=== PATIENT | female | born 1955 ===

== ENCOUNTER 2022-09-02 14:08 | Inpatient (IN) | payer MEDICARE, MEDICAID, SELFPAY ==
[2022-09-02] VITALS (13 sets, daily range): BP systolic 139–165; BP diastolic 87–99; PULSE 79–92; RESP 17–23; TEMP 36.5–37.3; O2SAT 92–99; BMI 46.8
--- NOTE | ~2022-09-02 | CT_ITS ---
EXAMINATION: CT brain wo con DATE: 09/02/2022 15:25 INDICATION: Weakness. TECHNIQUE: Computed tomography (CT) of the head was performed without intravenous contrast. The mA wa s adjusted according to patient size. Iterative reconstruction technique was employed. The dose-lengt h product was 605.33 mGy-cm. COMPARISON: Head CT 11/21/2016 FINDINGS: There is an old infarct involving the right basal ganglia, right insula, and right frontopa rietal deep white matter. There is an old lacunar infarct in left thalamus. There is no intracranial hemorrhage, acute infarction, or abnormal intracranial mass lesion. There is ex vacuo dilatation of b lavon of right lateral ventricle. The orbits are normal. There is mild mucosal thickening in the parana arian sinuses. The mastoid air cells are normal. IMPRESSION: 1. Old infarct involving the right basal ganglia, right insula, and right frontoparietal deep white m atter. Old infarct in left thalamus. Reviewed, dictated and finalized at location A. DATA IMPRESSION: 1. Old infarct involving the right basal ganglia, right insula, and right front oparietal deep white matter. Old infarct in left thalamus.
--- NOTE | ~2022-09-02 | XR_ITS ---
EXAMINATION: XR chest 1V portable DATE: 09/02/2022 15:21 INDICATION: Weakness TECHNIQUE: frontal view of the chest was obtained. COMPARISON: Chest radiograph dated 11/21/2016 FINDINGS: The lungs are clear with no focal airspace opacities, pulmonary edema, pleural effusion or pneumothor ax. Cardiomegaly. Median sternotomy wires suggesting prior coronary artery bypass grafting. Dual lead pacemaker/AICD seen with leads projecting over the expected locations of the right atrium and right ventricle. Calcified mediastinal lymph node consistent with old granulomatous disease. Tortuous thora cic aorta. IMPRESSION: 1. Cardiomegaly. Reviewed, dictated and finalized at location A. CH AND LANGUAGE SPECIALIST IMPRESSION: 1. Cardiomegaly.
--- NOTE | 2022-09-02 14:25 | ED.WEAKNESS ---
HPI - Weakness General Chief complaint: Weakness Stated complaint: increasing weakness Source: family and EMS Mode of arrival: EMS Limitations: altered mental status History of Present Illness HPI Narrative: Patient is a 67-year-old female with a history of hypertension, hyperlipidemia, CVA with left-sided deficits, presenting to the emergency department for evaluation of weakness. Patient is currently alert and oriented to person, place, not to time. Apparently, per family she has short-term memory loss. Her son at bedside provides much of the history. He states that this morning around 1 in the morning she was having difficulty ambulating from her chair to bed. Typically, patient is able to ambulate independently and usually does not require much assistance with her ADLs. She lives at home with her son and . Because she has been unable to stand up on her own or walk independently, EMS was called and the patient was transported here for evaluation. Apparently, she has been eating and drinking at baseline. Her mental status seems to be at baseline per son. He denies fever, nausea, vomiting. Patient currently denies any headache, chest pain or abdominal pain. History is limited as the patient is only alert and oriented to person, cannot recall the name of the hospital but cannot state the date. Related Data Home Medications Medication Instructions Recorded Confirmed atorvastatin 40 mg tablet mg 09/02/22 09/02/22 carvedilol 25 mg tablet mg 09/02/22 ergocalciferol (vitamin D2) 1,250 09/02/22 mcg (50,000 unit) capsule icosapent ethyl 1 gram capsule g PO 09/02/22 (Vascepa) potassium chloride 10 mEq meq PO 09/02/22 tablet,extended release(part/cryst) Allergies Allergy/AdvReac Type Severity Reaction Status Date / Time No Known Allergies Allergy Unverified 11/21/16 09:49 Review of Systems Review of Systems: CONSTITUTIONAL: Denies fever CARDIOVASCULAR: Denies chest pain RESPIRATORY: Denies cough or dyspnea. GASTROINTESTINAL: Denies abdominal pain SKIN: Denies rash MUSCULOSKELETAL: Denies back pain NEUROLOGIC: Denies headache ROS unobtainable: Yes unobtainable due to mental status [facility] Past Medical History Medical History (Updated 09/02/22 @ 18:58 by Melinda Reyes MD) Asthma CVA (cerebral vascular accident) HLD (hyperlipidemia) HTN (hypertension) Social History Social History (Updated 09/02/22 @ 15:09 by Melinda Reyes MD) Smoking status: Never smoker Alcohol intake: never Substance use: never Living arrangements: with family Gender identity (if verbalized by the patient): Female Exam Narrative: GENERAL: Awake, alert, morbidly obese HEAD: Normocephalic, atraumatic. EYES: PERRLA and EOMI. ENT: Nares clear, no rhinorrhea or epistaxis. Mucous membranes moist. NECK: Supple. CHEST: No respiratory distress, shallow respirations, however breathing even and non labored HEART: Regular rate, sinus rhythm ABDOMEN:Non distended, non tender EXTREMITIES: Normal range of motion. No edema. SKIN: Warm, dry, no rash. NEURO:No focal deficits. Alert and oriented x1-2. Pt can recall the name of the hospital. Pt with LUE and LLE paralysis, chronic. Course Vital Signs Vital signs: Vital Signs Temperature 36.5 C 09/02/22 14:08 Pulse Rate 92 09/02/22 14:08 Respiratory Rate 20 09/02/22 14:08 Blood Pressure 145/97 H 09/02/22 14:08 Pulse Oximetry 97 09/02/22 14:08 Oxygen Delivery Room Air 09/02/22 14:08 Temperature 36.5 C 09/02/22 14:24 Pulse Rate 89 09/02/22 18:30 Respiratory Rate 21 H 09/02/22 18:30 Blood Pressure 165/97 H 09/02/22 18:30 Pulse Oximetry 93 09/02/22 18:30 Oxygen Delivery Room Air 09/02/22 14:24 MDM - Weakness MDM Narrative Medical decision making narrative: Patient presenting for evaluation weakness per family. They help to provide much of the history given patient is not a very reliable historian. At the time of a
--- NOTE | 2022-09-02 15:10 | ECG_ITS ---
Measurements Intervals [place] Rate: 91 P: 13 DC: 169 QRS: -12 QRSD: 163 T: 164 QT: 421 QTc: 518 Interpretive Statements SINUS RHYTHM LEFT BUNDLE BRANCH BLOCK [120+ ms QRS DURATION, 80+ ms Q/S IN V1/V2, 85+ ms R IN I/aVL/V5/V6] ABNORMAL ECG NO PREVIOUS ECG AVAILABLE FOR COMPARISON Electronically Signed On 09-03-2022 14:34:15 MANAGER INSTALLATION by Zurdo Guerin M.D.
[2022-09-02 15:44] LABS: Basophils Percent Auto 0.4 % (0.2-1.2); Eosinophils Percent Auto 0.2 % (0-4.4); Hematocrit 41.4 % (37.0-47.0); Hemoglobin 13.2 g/dL (12.0-15.0); Immature Granulocyte Absolute 0.01 K/mm3 (0.00-0.031); Immature Granulocyte Percent A 0.2 % (0-0.5); Lymphocytes Absolute Auto 0.42 K/mm3 (0.9-3.2); Mean Corpuscular HGB Conc 31.9 g/dl (32-36); Mean Corpuscular Hemoglobin 28.3 pg (26-34); Mean Corpuscular Volume 88.8 fl (80-100); Mean Platelet Volume 9.6 fl (7.4-10.4); Monocytes Absolute Auto 0.8 K/mm3 (0.1-0.6); Neutrophils Absolute Auto 3.5 K/mm3 (1.3-6.7); Neutrophils Percent Auto 74.2 % (45.5-73.1); Platelet Count Result 177 k/mm3 (150-375); Red Blood Count 4.66 M/mm3 (4.2-5.4); Red Cell Distribution Width 12.7 % (11.5-14.5); White Blood Count 4.7 K/mm3 (4.5-10.0)
[2022-09-02 15:58] LABS: Alanine Aminotransferase 34 U/L (6-35); Albumin Level 4.6 g/dL (3.5-5.1); Alkaline Phosphatase 100 U/L (38-126); Anion Gap 9 mmol/L (8-16); Aspartate Amino Transferase 54 U/L (14-36); Bilirubin,Total 0.5 mg/dL (0.2-1.3); Blood Urea Nitrogen 18 mg/dL (7-17); Calcium 9.3 mg/dL (8.4-10.2); Carbon Dioxide 32 mmol/L (22-30); Chloride 97 mmol/L (98-107); Estimated Glomerular Filt Rate 50; Glucose 131 mg/dL (65-110); Potassium 3.1 mmol/L (3.4-5.0); Sodium 138 mmol/L (137-145)
[2022-09-02] MEDS: SODIUM CHLORIDE 0.9% IV 500 ML 999 ML IV CONT (15:58)
[2022-09-02 16:13] LABS: Troponin I 0.118 ng/mL (0.000-0.034)
[2022-09-02 16:18] LABS: Influenza A QL RT-PCR Negative (Negative); Influenza B QL RT-PCR Negative (Negative); RSV RNA, RT-PCR Negative (Negative); SARS-CoV-2 RNA PCR Positive
[2022-09-02 16:28] LABS: Thyroid Stimulating Hormone 0.432 uIU/mL (0.465-4.680)
[2022-09-02] MEDS: POTASSIUM CHLORIDE 20 MEQ PACKET (FOR LIQUID) 40 MEQ PO (17:06)
[2022-09-02 17:39] LABS: Appearance Urine Clear (Clear); Bilirubin Urine Negative (Negative); Blood Urine Trace-lysed (Negative); Color Urine Yellow (Yellow); Glucose Urine UA Negative (Negative); Ketones Urine Negative (Negative); Leukocyte Esterase Ur Negative LEU/UL (Negative); Nitrate Urine Negative (Negative); Protein Urine 1+ mg/dL (Negative); Specific Grav Ur 1.015 (1.001-1.035); Urobilinogen Urine 0.2 mg/dL (<2.0); pH Urine 5.5 (5.0-9.0)
[2022-09-02 17:44] LABS: Bacteria Urine Trace /hpf; Mucus Urine Rare /lpf; Squamous Epithelial Cell Urine Occasional /hpf (Few); WBC Urine 0-3 /hpf
[2022-09-02 17:47] LABS: Add Urine Microscopic? YES
[2022-09-02 18:57] LABS: Creatine Kinase 446 U/L (30-135)
--- NOTE | 2022-09-02 19:19 | PM.IMHP ---
H&P: HPI History of Present Illness Date/Time: 09/02/22 19:19 Chief Complaint: Weakness Narrative: This is a 67-year-old female patient who resides in her home with her and son. Her son helps to take care of her. The patient has a history of having a CVA with left-sided deficit. The patient presented to the emergency room to be evaluated for weakness. The left side is flaccid but the patient is still able to get up and move around at home. The patient stated that she does not do a whole lot at home but she does get up and walk. The patient's son was at the bedside answering some questions. The son stated that she was having difficulty ambulating to the chair from the bed. The patient was not able to get up and stand on her own today. The patient has been eating and drinking without any difficulty. The patient was answering questions for me. Potassium 3.1 creatinine 1.1 glucose 131. Troponin 0.118 and 0.142. TSH is 0.432. Urine is negative. Patient's COVID test is positive. Head CT shows old infarct involving the right basal ganglia right insula and right frontoparietal deep white matter. Old infarct in left thalamus. Chest x-ray cardiomegaly. The patient was given IV fluids and replacement potassium. The patient is being admitted to observation status on the date of service of 09/02/2022 Review of Systems Review of Systems: See HPI All systems reviewed & are unremarkable except as noted in HPI and below Constitutional: Constitutional: Reports as per HPI and Reports no additional constitutional complaints Eyes: Eyes: Reports as per HPI and Reports no additional eye complaints ENT: Reports system reviewed and no additional complaints, except as documented and Reports Normal hearing present Cardiovascular: Cardiovascular: Reports no additional cardiovascular complaints Respiratory: Respiratory: Reports no additional respiratory complaints and Reports no additional respiratory complaints Gastrointestinal: Gastrointestinal: Reports as per HPI and Reports no additional gastrointestinal complaints Musculoskeletal: Musculoskeletal: Reports no additional musculoskeletal complaints Integumentary/Breasts: Skin/Breast: Reports system reviewed and no additional complaints, except as docu and Reports as per HPI Neurologic: Reports system reviewed and no additional complaints, except as documented, Reports as per HPI and Reports Normal hearing present Psychiatric: Psychiatric: Reports no additional psychiatric complaints and Reports as per HPI Endocrine: Endocrine: Reports no additional endocrine complaints Hematologic/Lymphatic: Hematologic/Lymphatic: Reports no additional hematologic/lymphatic complaints Allergic/Immunologic: Allergic/Immunologic: Reports no additional allergic/immunologic complaints [facility] Past Medical History Medical History Asthma CVA (cerebral vascular accident) left side affect H/O congenital cardiac septal defect HLD (hyperlipidemia) HTN (hypertension) Surgical History Surgical History (Updated 09/02/22 @ 22:52 by Ana M James NP) H/O cardiac catheterization H/O section H/O heart surgery septal heart surgery H/O tubal ligation Family History Family History Mother Cerebrovascular accident Father Acute myocardial infarction Social History Social History (Updated 09/02/22 @ 22:44 by Ana M James NP) Social History: She has 4 children. She lives with her son and her . She is disabled. 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 She is a former smoker. Code status full code Smoking status: Former smoker Tobacco type: cigarettes Second hand tobacco smoke exposure: Yes Smoking end date: 08/01/78 Alcohol intake: current Drinks per week: 2 Substance use: former Last use: 1978 Lack of Transportation: No Lack of Fo
--- NOTE | 2022-09-02 21:19 | ADMGEN ---
This patient, Suyapa López, was admitted to IMU Room 203-01. Patient/family oriented to hospital policies and general routines including ID bracelet, bed and alarms, visiting hours, pain management, procedures, bathroom and other care routines, personal items, smoking policy, room service/diet, and visiting hours. Information on how to activate the Rapid Response Team has been discussed. Patient/Family are encouraged to report perceived risks to care and to ask questions if they do not understand what they are told or what they should do.
[2022-09-02 21:30] LABS: Troponin I 0.142 ng/mL (0.000-0.034)
[2022-09-02 23:17] LABS: Basophils Percent Auto 0.3 % (0.2-1.2); Eosinophils Percent Auto 0.3 % (0-4.4); Hematocrit 39.9 % (37.0-47.0); Hemoglobin 12.6 g/dL (12.0-15.0); Immature Granulocyte Absolute 0.01 K/mm3 (0.00-0.031); Immature Granulocyte Percent A 0.3 % (0-0.5); Lymphocytes Absolute Auto 0.65 K/mm3 (0.9-3.2); Lymphocytes Percent Auto 20.8 % (18.3-44.2); Mean Corpuscular HGB Conc 31.6 g/dl (32-36); Mean Corpuscular Hemoglobin 29.2 pg (26-34); Mean Corpuscular Volume 92.6 fl (80-100); Mean Platelet Volume 9.8 fl (7.4-10.4); Monocytes Absolute Auto 0.6 K/mm3 (0.1-0.6); Monocytes Percent Auto 18.9 % (2.6-8.5); Neutrophils Absolute Auto 1.9 K/mm3 (1.3-6.7); Neutrophils Percent Auto 59.4 % (45.5-73.1); Platelet Count Result 157 k/mm3 (150-375); Red Blood Count 4.31 M/mm3 (4.2-5.4); Red Cell Distribution Width 12.8 % (11.5-14.5); White Blood Count 3.1 K/mm3 (4.5-10.0)
[2022-09-02 23:26] LABS: Alanine Aminotransferase 38 U/L (6-35); Aspartate Amino Transferase 68 U/L (14-36); Estimated Glomerular Filt Rate 55
[2022-09-02] MEDS: BARICITINIB 2 MG TABLET PO (23:48)
[2022-09-03] VITALS (17 sets, daily range): BP systolic 122–162; BP diastolic 72–94; PULSE 65–90; RESP 20–22; TEMP 36.3–38.1; O2SAT 90–100; BMI 46.8
--- NOTE | 2022-09-03 | ECHO_ITS ---
Patient Info Name: Suyapa López Age: 67 years : 1955 Gender: Female Ht: 58 in Wt: 208 lbs BSA: 2.03 m2 HR: 84 bpm BP: 142 / 94 mmHg Heart Rhythm: Sinus Rhythm Technical Quality: Fair Exam Date: 09/03/2022 10:50 AM Exam Location: [facility] Pulmonary Patient Status: Inpatient Admit Date: 09/02/2022 Staff Ordering Physician: Vahe Fritz MD Civil Engineering Draftsperson: Danielle Sams RDCS Attending Provider: Dayanna Blanca MD Exam Type: CA echo doppler color flow Study Info Indications - elevated troponin Complete two-dimensional, color flow and Doppler transthoracic echocardiogram is performed. Summary 1. Complete two-dimensional, color flow and Doppler transthoracic echocardiogram is performed. 2. Left ventricular chamber dimension is normal. 3. There is moderate concentric increased left ventricular wall thickness. 4. Left ventricular septal wall motion is abnormal with septal motion related to bundle branch block. 5. The left ventricular diastolic function is grade I diastolic dysfunction. 6. Left ventricular systolic function is preserved, estimated at 50-55%. 7. E/e' 20 is elevated. 8. Linear artifact in right ventricle suggestive of catheter(s), pacemaker lead(s), or ICD lead(s). 9. Left atrial chamber dimension is moderately enlarged. 10. Linear artifact in the right atrium suggestive of catheter(s), pacemaker lead(s), or ICD lead(s). 11. There is moderate aortic valve sclerosis. 12. There is mild to moderate aortic valve stenosis with a peak velocity of 225 cm/s, mean gradient of 13 mmHg, and aortic valve area of 1.4 cm2. 13. There is mild mitral valve regurgitation. 14. No pulmonary hypertension, estimated pulmonary arterial systolic pressure is 25 mmHg. 15. There is trace pulmonic regurgitation. Left Ventricle E/e' 20 is elevated. Left ventricular systolic function is preserved, estimated at 50-55%. Left ventricular chamber dimension is normal. There is moderate concentric increased left ventricular wall thickness. Left ventricular septal wall motion is abnormal with septal motion related to bundle branch block. The left ventricular diastolic function is grade I diastolic dysfunction. Right Ventricle Right ventricular systolic function is normal and with normal TAPSE 1.8 cm. Linear artifact in right ventricle suggestive of catheter(s), pacemaker lead(s), or ICD lead(s). Right ventricular chamber dimension is normal. Left Atria Left atrial chamber dimension is moderately enlarged. Right Atria Linear artifact in the right atrium suggestive of catheter(s), pacemaker lead(s), or ICD lead(s). Right atrial chamber dimension is normal. Aortic Valve The aortic valve is trileaflet. There is moderate aortic valve sclerosis. There is mild to moderate aortic valve stenosis with a peak velocity of 225 cm/s, mean gradient of 13 mmHg, and aortic valve area of 1.4 cm2. There is no aortic valve regurgitation. Pulmonic Valve There is trace pulmonic regurgitation. Mitral Valve There is no mitral valve stenosis. There is mild mitral valve regurgitation. Tricuspid Valve There is no tricuspid valve regurgitation. No pulmonary hypertension, estimated pulmonary arterial systolic pressure is 25 mmHg. Pericardium/Pleural There is no pericardial effusion. Inferior Vena Cava Normal inferior vena cava with >50% collapse upon inspiration consistent with normal right atrial pressure, 5 mmHg. Aorta The aortic root size at the sinus of Valsalva is n
[2022-09-03 01:53] LABS: Troponin I 0.169 ng/mL (0.000-0.034)
[2022-09-03 04:37] LABS: Basophils Percent Auto 0.6 % (0.2-1.2); Hematocrit 38.5 % (37.0-47.0); Hemoglobin 12.3 g/dL (12.0-15.0); Lymphocytes Absolute Auto 1.39 K/mm3 (0.9-3.2); Lymphocytes Percent Auto 39.8 % (18.3-44.2); Mean Corpuscular HGB Conc 31.9 g/dl (32-36); Mean Corpuscular Hemoglobin 28.8 pg (26-34); Mean Corpuscular Volume 90.2 fl (80-100); Mean Platelet Volume 10.3 fl (7.4-10.4); Monocytes Absolute Auto 0.9 K/mm3 (0.1-0.6); Monocytes Percent Auto 26.6 % (2.6-8.5); Neutrophils Absolute Auto 1.2 K/mm3 (1.3-6.7); Platelet Count Result 143 k/mm3 (150-375); Red Blood Count 4.27 M/mm3 (4.2-5.4); White Blood Count 3.5 K/mm3 (4.5-10.0)
[2022-09-03 04:49] LABS: Alanine Aminotransferase 41 U/L (6-35); Albumin Level 4.1 g/dL (3.5-5.1); Alkaline Phosphatase 84 U/L (38-126); Anion Gap 6 mmol/L (8-16); Aspartate Amino Transferase 75 U/L (14-36); Bilirubin,Total 0.5 mg/dL (0.2-1.3); Blood Urea Nitrogen 20 mg/dL (7-17); Calcium 8.3 mg/dL (8.4-10.2); Carbon Dioxide 31 mmol/L (22-30); Chloride 98 mmol/L (98-107); Estimated Glomerular Filt Rate 50; Glucose 98 mg/dL (65-110); Lactic Acid Reflex 0.8 mmol/L (0.7-2.0); Potassium 3.2 mmol/L (3.4-5.0); Sodium 135 mmol/L (137-145)
[2022-09-03] MEDS: ENOXAPARIN 40 MG/0.4 ML SYRINGE SUB-Q (09:01)
[2022-09-03] MEDS: POTASSIUM CHLORIDE 20 MEQ TABLET 40 MEQ PO (09:01)
[2022-09-03 09:14] LABS: CRP 3.7 mg/dL (<1.0); Creatine Kinase 671 U/L (30-135); Lactate Dehydrogenase 249 U/L (120-246)
--- NOTE | 2022-09-03 09:43 | PM.IMPN ---
Progress Note: A&P Assessment and Plan (1) COVID-19: Code(s): U07.1 - COVID-19 Status: Acute Assessment and Plan: Patient diagnosed with COVID on admission. Chest x-ray was clear on admission. She was on room air on admission. She was started on baricitinib only. Increase O2 requirement overnight. Inflammatory markers today showed LDH of 250 and CRP of 3.7. Ferritin normal. Given the only mildly elevated CRP, will stop baricitinib. Will add dexamethasone. Creatinine clearance is 50 and ALT only mildly elevated. Do not see specific contraindication for remdesivir and as such will add this as well. Overall it is unclear if her hypoxia is related to COVID or if she has undiagnosed sleep apnea. We will check an ApneaLink. Continue contact and droplet isolation. Add sliding scale (2) Elevated troponin: Code(s): R77.8 - Other specified abnormalities of plasma proteins Status: Acute Assessment and Plan: Troponin 0.118 -> 0.17. The patient has no complaints of chest pain. Just some generalized weakness. EKG shows nml sinus rhythm with a left bundle branch block (reviewed personally and cardiology concurs). Left BBB is chronic. Check Echo. (3) Weakness: Code(s): R53.1 - Weakness Status: Acute Assessment and Plan: The patient is flaccid on the left side from hx of CVA. Now she is weak and having difficulty walking. PT/OT evaluation greatly be appreciated. Consult animal caretaker supervisor for possibility of short-term rehab facility. (4) HTN (hypertension): Code(s): I10 - Essential (primary) hypertension Status: Acute Assessment and Plan: Patient's blood pressure was reviewed on 2/3 Blood pressure remains reasopnably well controlled. Home meds not finalized. Resume as appropriate. (5) HLD (hyperlipidemia): Code(s): E78.5 - Hyperlipidemia, unspecified Status: Acute Assessment and Plan: LFTs mildly elevated felt related to the viral illness. Home meds not finalized. Resume as appropriate. Plan DVT proph - Lovenox Elevated CK - related to COVID. Follow for now. Hold on IV fluids. Subjective Date/time seen: 09/03/22 09:43 Interval history: 67yo female with hx of CVA, HTN and HLD here for altered mental status. Patient awake and alert. Occasionally productive cough. Shortness of breath is better. No chest pain. No nausea or vomiting. Eating well. Patient had drop in her oxygen saturation last evening to 83% with sleeping. She also was snoring. Exam Narrative: AF 98.0 142/94 84 20 92% 3L Gen - NARD sitting up in bed finishing breakfast Chest - distant, clear BS, nml RR CV - RRR S1/S2. Tele showing PVCs Abd - Soft, NT/ND, Positive BS Ext - No pedal edema Neuro - left hemiplegia Psych - Nml mood and affect Skin - Warm and dry Objective Data Vital Signs Vital Signs: Vital Signs - 24 hr 09/02/22 14:08 09/02/22 15:00 09/02/22 16:16 Temperature 97.7 F Pulse Rate 92 91 90 Respiratory Rate 20 19 23 H Blood Pressure 145/97 H 158/94 H 146/95 H Pulse Oximetry 97 96 96 Oxygen Delivery Room Air Oxygen Flow Rate 09/02/22 16:45 09/02/22 17:15 09/02/22 18:15 Temperature Pulse Rate 89 87 86 Respiratory Rate 17 18 23 H Blood Pressure 147/89 H 147/92 H 161/87 H Pulse Oximetry 99 96 93 Oxygen Delivery Oxygen Flow Rate 09/02/22 18:30 09/02/22 20:57 09/02/22 21:40 Temperature Pulse Rate 89 85 84 Respiratory Rate 21 H 18 Blood Pressure 165/97 H 139/93 H Pulse Oximetry 93 93 Oxygen Delivery Oxygen Flow Rate 09/02/22 21:30 09/02/22 23:42 09/02/22 23:46 Temperature 99.1 F 97.8 F Pulse Rate 87 79 81 Respiratory Rate 21 H 20 Blood Pressure 156/99 H 148/92 H Pulse Oximetry 92 94 Oxygen Delivery Nasal Cannula Oxygen Flow Rate 3 09/03/22 00:00 09/03/22 01:39 09/03/22 04:00 Temperature Pulse Rate 80 73 75 Respiratory Rate Blood Pressure P
[2022-09-03 11:25] LABS: INR 1.1; Prothrombin Time 13.5 Seconds (11.1-14.7)
[2022-09-03 12:04] LABS: Glucose Point of Care 133 mg/dl (65-105)
[2022-09-03] MEDS: REMDESIVIR 200 MG/NS 250 ML 200 MG/250 ML BAG 250 MG IVPB (12:55)
[2022-09-03] MEDS: ACETAMINOPHEN 325 MG TABLET 650 MG PO (13:01)
[2022-09-03] MEDS: ALBUTEROL SULFATE (*SP) AEROSOL 1 PUFF 2 PUFF INHALATION ×2 (14:13)
[2022-09-03 17:17] LABS: Glucose Point of Care 185 mg/dl (65-105)
[2022-09-03 20:25] LABS: Glucose Point of Care 148 mg/dl (65-105)
[2022-09-03] MEDS: TOLNAFTATE 1% POWDER 45 GM BTL 1 APPLIC TOPICAL (21:41)
[2022-09-03] MEDS: ALBUTEROL SULFATE (*SP) INHALER 2 PUFF INHALATION (22:40)
[2022-09-04] VITALS (13 sets, daily range): BP systolic 130–166; BP diastolic 79–94; PULSE 65–92; RESP 16–20; TEMP 36.1–36.7; O2SAT 92–97
[2022-09-04] MEDS: ALBUTEROL SULFATE (*SP) INHALER 2 PUFF INHALATION ×3 (08:41→21:49)
[2022-09-04 09:22] LABS: Basophils Percent Auto 0.4 % (0.2-1.2); Hematocrit 40.9 % (37.0-47.0); Hemoglobin 12.7 g/dL (12.0-15.0); Immature Granulocyte Absolute 0.01 K/mm3 (0.00-0.031); Immature Granulocyte Percent A 0.4 % (0-0.5); Lymphocytes Absolute Auto 1.13 K/mm3 (0.9-3.2); Lymphocytes Percent Auto 48.7 % (18.3-44.2); Mean Corpuscular HGB Conc 31.1 g/dl (32-36); Mean Corpuscular Hemoglobin 28.3 pg (26-34); Mean Corpuscular Volume 91.3 fl (80-100); Mean Platelet Volume 10.1 fl (7.4-10.4); Monocytes Absolute Auto 0.2 K/mm3 (0.1-0.6); Monocytes Percent Auto 8.6 % (2.6-8.5); Neutrophils Percent Auto 41.9 % (45.5-73.1); Platelet Count Result 142 k/mm3 (150-375); Red Blood Count 4.48 M/mm3 (4.2-5.4); Red Cell Distribution Width 12.6 % (11.5-14.5); White Blood Count 2.3 K/mm3 (4.5-10.0)
--- NOTE | 2022-09-04 09:22 | PM.IMPN ---
Progress Note: A&P Assessment and Plan (1) COVID-19: Code(s): U07.1 - COVID-19 Status: Acute Assessment and Plan: Patient diagnosed with COVID on admission. Chest x-ray was clear on admission. She was on room air on admission. She was started on baricitinib only. Increase O2 requirement overnight. Inflammatory markers today showed LDH of 250 and CRP of 3.7. Ferritin normal. Given the only mildly elevated CRP, baricitinib stopped and dexamethasone and remdesivir started. Overall it is unclear if her hypoxia is related to COVID or if she has undiagnosed sleep apnea. ApneaLink on 1L showing RI 7.7 and AHI 9.1. No desaturation. Continue contact and droplet isolation. Wean O2 as tolerated. She will need a formal sleep study as outpatient. (2) Elevated troponin: Code(s): R77.8 - Other specified abnormalities of plasma proteins Status: Acute Assessment and Plan: Troponin 0.118 -> 0.17. The patient has no complaints of chest pain. Just some generalized weakness. EKG shows nml sinus rhythm with a left bundle branch block (reviewed personally and cardiology concurs). Left BBB is chronic. Echo showing EF 50-55% with Grade I diastolic dysfunction and moderate aortic stenosis. Follow. Continue ASA. Lipitor on hold due to climbing TCK and elevated LFTs. (3) Weakness: Code(s): R53.1 - Weakness Status: Acute Assessment and Plan: The patient is flaccid on the left side from hx of CVA. Now she is weak and having difficulty walking. TCK levels climbing. Statin therapy has been stopped. LFTs higher and felt these findings related to COVID. Continue PT/OT. Do not believe she needs Speech evaluation but she was educated about smaller bites alternating liquids and clear the mouth before taking another bite. Was also instructed to eat slower. She voiced understanding of this. She was also educated about the risks of trying to get up out of bed on her own. She voices understanding of this. communication center coordinator for possibility of short-term rehab facility. (4) HTN (hypertension): Code(s): I10 - Essential (primary) hypertension Status: Acute Assessment and Plan: Patient's blood pressure was reviewed on 09/04 Blood pressure remains reasonably well controlled. Resume some of her home medications. (5) HLD (hyperlipidemia): Code(s): E78.5 - Hyperlipidemia, unspecified Status: Acute Assessment and Plan: LFTs mildly elevated felt related to the viral illness and rhabdomyolysis. Plan DVT proph - Lovenox Rhabdomyolysis - related to COVID and/or statin therapy. Hold atorvastatin. Continue to follow TCK. Hold on IV fluids. Subjective Date/time seen: 09/04/22 09:22 Interval history: 67yo female with hx of CVA, HTN and HLD here for altered mental status. No issues overnight. Staff found patient half out of bed trying to get up. Patient states she does walk with walker at home. no CP or abd pain. SOB better. Not on home O2. Exam Narrative: AF 97.5 166/89 83 18 97% 1L Gen - NARD sitting up eating her breakfast (she takes multiple bites before swallowing and then takes excessive amount of time to chew and swallow her food requiring multiple sips of water; no evidence of aspiration) Chest - few basilar crackles, nml RR, scattered expiratory wheeze CV - RRR S1/S2. Tele showing PVCs Abd - Soft, NT/ND, Positive BS Ext - No pedal edema Neuro - left hemiplegia Psych - Nml mood but odd affect Skin - Warm and dry Objective Data Vital Signs Vital Signs: Vital Signs - 24 hr 09/03/22 10:08 09/03/22 12:00 09/03/22 13:01 Temperature 100.6 F H 100.6 F H Pulse Rate 76 Pulse Rate [With Activity During Therapy Session] 90 Respiratory Rate 20 Blood Pressure 124/72 Pulse Oximetry 98 Pulse Oximetry [With Activity During Therapy Session] 90 Oxygen Delivery Room Air Oxygen Flow Rate 09/03/22 14:29 09/03/22 12:00 09/03/22
[2022-09-04 09:32] LABS: Alanine Aminotransferase 50 U/L (6-35); Albumin Level 3.9 g/dL (3.5-5.1); Alkaline Phosphatase 82 U/L (38-126); Anion Gap 8 mmol/L (8-16); Aspartate Amino Transferase 101 U/L (14-36); Bilirubin,Total 0.5 mg/dL (0.2-1.3); Blood Urea Nitrogen 24 mg/dL (7-17); Calcium 8.3 mg/dL (8.4-10.2); Carbon Dioxide 27 mmol/L (22-30); Chloride 103 mmol/L (98-107); Creatine Kinase 1083 U/L (30-135); Estimated Glomerular Filt Rate > 60; Glucose 182 mg/dL (65-110); Magnesium 2.2 mg/dL (1.6-2.3); Phosphorus 3.4 mg/dL (2.5-4.5); Potassium 3.6 mmol/L (3.4-5.0); Sodium 138 mmol/L (137-145)
[2022-09-04 09:40] LABS: INR 1.1; Prothrombin Time 13.4 Seconds (11.1-14.7)
[2022-09-04] MEDS: ENOXAPARIN 40 MG/0.4 ML SYRINGE SUB-Q (09:57)
[2022-09-04] MEDS: carvediloL 12.5 MG TABLET PO ×2 (09:57→17:49)
[2022-09-04] MEDS: ASPIRIN 81 MG CHEWABLE TABLET PO (09:58)
[2022-09-04] MEDS: REMDESIVIR 100 MG/NS 250 ML 100 MG/250 ML BAG 250 MG IVPB (10:00)
[2022-09-04] MEDS: TOLNAFTATE 1% POWDER 45 GM BTL 1 APPLIC TOPICAL ×2 (10:03→21:21)
[2022-09-04 12:14] LABS: Glucose Point of Care 137 mg/dl (65-105)
[2022-09-04 17:57] LABS: Glucose Point of Care 173 mg/dl (65-105)
[2022-09-04 21:07] LABS: Glucose Point of Care 178 mg/dl (65-105)
[2022-09-04] MEDS: DOCUSATE SODIUM 100 MG CAPSULE PO (22:50)
[2022-09-05] VITALS (9 sets, daily range): BP systolic 144–154; BP diastolic 73–77; PULSE 58–86; RESP 14–22; TEMP 36.5–36.7; O2SAT 92–97
--- NOTE | 2022-09-05 05:37 | PCRCNOTE ---
Patient refused her 0200 inhaler. She did not want to be awakened.
[2022-09-05 06:53] LABS: Alanine Aminotransferase 52 U/L (6-35); Albumin Level 3.7 g/dL (3.5-5.1); Alkaline Phosphatase 72 U/L (38-126); Anion Gap 3 mmol/L (8-16); Aspartate Amino Transferase 96 U/L (14-36); Bilirubin,Total 0.4 mg/dL (0.2-1.3); Blood Urea Nitrogen 19 mg/dL (7-17); Calcium 7.9 mg/dL (8.4-10.2); Carbon Dioxide 31 mmol/L (22-30); Chloride 102 mmol/L (98-107); Creatine Kinase 938 U/L (30-135); Estimated Glomerular Filt Rate > 60; Glucose 109 mg/dL (65-110); Potassium 3.6 mmol/L (3.4-5.0); Sodium 136 mmol/L (137-145)
[2022-09-05 07:05] LABS: Prothrombin Time 13.2 Seconds (11.1-14.7)
[2022-09-05 08:34] LABS: Glucose Point of Care 118 mg/dl (65-105)
[2022-09-05] MEDS: ALBUTEROL SULFATE (*SP) INHALER 2 PUFF INHALATION ×3 (09:24→21:30)
[2022-09-05] MEDS: ASPIRIN 81 MG CHEWABLE TABLET PO (10:12)
[2022-09-05] MEDS: DOCUSATE SODIUM 100 MG CAPSULE PO ×2 (10:13→20:33)
[2022-09-05] MEDS: carvediloL 12.5 MG TABLET PO ×2 (10:13→17:39)
[2022-09-05] MEDS: ENOXAPARIN 40 MG/0.4 ML SYRINGE SUB-Q (10:14)
[2022-09-05] MEDS: REMDESIVIR 100 MG/NS 250 ML 100 MG/250 ML BAG 250 MG IVPB (10:15)
[2022-09-05] MEDS: TOLNAFTATE 1% POWDER 45 GM BTL 1 APPLIC TOPICAL ×2 (10:15→20:34)
[2022-09-05 13:04] LABS: Glucose Point of Care 141 mg/dl (65-105)
--- NOTE | 2022-09-05 14:02 | PCPTNOTE ---
Patient refused treatment this session, stating she just got back in bed and was to tired to do anything.
--- NOTE | 2022-09-05 15:53 | PM.IMPN ---
Progress Note: A&P Assessment and Plan (1) COVID-19: Code(s): U07.1 - COVID-19 Status: Acute Assessment and Plan: Patient diagnosed with COVID on admission. Chest x-ray was clear on admission. She was on room air on admission. She was started on baricitinib only. Increase O2 requirement that night. Inflammatory markers showed LDH of 250 and CRP of 3.7. Ferritin normal. Given the only mildly elevated CRP, baricitinib stopped and dexamethasone and remdesivir started. Overall it is unclear if her hypoxia is related to COVID and/or if she has undiagnosed sleep apnea. ApneaLink on 1L showing RI 7.7 and AHI 9.1. No desaturation. Continue contact and droplet isolation. Wean O2 as tolerated. She will need a formal sleep study as outpatient. Apnea link on room air to assess nocturnal O2 requirements. (2) Elevated troponin: Code(s): R77.8 - Other specified abnormalities of plasma proteins Status: Acute Assessment and Plan: Troponin 0.118 -> 0.17. The patient has no complaints of chest pain. Just some generalized weakness. EKG shows nml sinus rhythm with a left bundle branch block (reviewed personally and cardiology concurs). Left BBB is chronic. Echo showing EF 50-55% with Grade I diastolic dysfunction and moderate aortic stenosis. Follow. Continue ASA. Lipitor on hold due to climbing TCK and elevated LFTs. (3) Weakness: Code(s): R53.1 - Weakness Status: Acute Assessment and Plan: The patient is flaccid on the left side from hx of CVA. Now she is weak and having difficulty walking. TCK levels peaked and now coming down. Statin therapy has been stopped. LFTs higher and felt these findings related to COVID. Continue PT/OT. Do not believe she needs Speech evaluation but she was educated about smaller bites alternating liquids and clear the mouth before taking another bite. Was also instructed to eat slower. She voiced understanding of this. She was also educated about the risks of trying to get up out of bed on her own. She voices understanding of this. watershed coordinator for possibility of short-term rehab facility. (4) HTN (hypertension): Code(s): I10 - Essential (primary) hypertension Status: Acute Assessment and Plan: Patient's blood pressure was reviewed on 09/05 Blood pressure remains reasonably well controlled. Continue current medications. (5) HLD (hyperlipidemia): Code(s): E78.5 - Hyperlipidemia, unspecified Status: Acute Assessment and Plan: LFTs mildly elevated felt related to the viral illness and rhabdomyolysis. AST trending down. Plan DVT proph - Lovenox Rhabdomyolysis - related to COVID and/or statin therapy. TCK trending down now. Continue to hold atorvastatin. Continue to follow TCK. Hold on IV fluids. Subjective Date/time seen: 09/05/22 15:53 Interval history: 67yo female with hx of CVA, HTN and HLD here for altered mental status. No CP. Her shortness of breath is better. No chest pain. She had a small bowel movement but still feels constipated. Eating okay. She was up to the chair today. Exam Narrative: AF 98.1 144/73 67 16 95% RA Gen - NARD Chest - clear anteriorly and in the flanks. CV - RRR S1/S2 Abd - Soft, NT/ND, Positive BS Ext - No pedal edema Neuro - left hemiplegia Psych - Nml mood but odd affect Skin - Warm and dry Objective Data Vital Signs Vital Signs: Vital Signs - 24 hr 09/04/22 17:49 09/04/22 21:04 09/04/22 21:49 Temperature 97.9 F Pulse Rate 74 77 Respiratory Rate 20 Blood Pressure 160/79 H Pulse Oximetry 95 94 Oxygen Delivery Nasal Cannula Oxygen Flow Rate 1 09/05/22 04:42 09/05/22 10:13 09/05/22 09:24 Temperature 97.8 F Pulse Rate 58 L 82 74 Respiratory Rate 22 H 18 Blood Pressure 147/77 H Pulse Oximetry 92 Oxygen Delivery Oxygen Flow Rate 09/05/22 09:26 09/05/22 14:20 Temperature 98.1 F Pulse Rate 86 67
[2022-09-05 17:36] LABS: Glucose Point of Care 103 mg/dl (65-105)
[2022-09-05] MEDS: polyethylene glycoL 3350 17 GM POWD.PACK PO (17:36)
[2022-09-05 21:11] LABS: Glucose Point of Care 109 mg/dl (65-105)
[2022-09-06] VITALS (8 sets, daily range): BP systolic 151–162; BP diastolic 60–78; PULSE 59–80; RESP 18–20; TEMP 36.4–37.2; O2SAT 90–96; BMI 10.0
[2022-09-06] MEDS: ALBUTEROL SULFATE (*SP) INHALER 2 PUFF INHALATION ×4 (02:45→20:11)
[2022-09-06 05:48] LABS: Basophils Percent Auto 0.2 % (0.2-1.2); Eosinophils Percent Auto 0.5 % (0-4.4); Hematocrit 39.8 % (37.0-47.0); Hemoglobin 12.4 g/dL (12.0-15.0); Immature Platelet Fraction Pct 4.5 % (0.9-11.2); Lymphocytes Absolute Auto 1.68 K/mm3 (0.9-3.2); Lymphocytes Percent Auto 41.1 % (18.3-44.2); Mean Corpuscular HGB Conc 31.2 g/dl (32-36); Mean Corpuscular Hemoglobin 29.1 pg (26-34); Mean Corpuscular Volume 93.4 fl (80-100); Mean Platelet Volume 10.2 fl (7.4-10.4); Monocytes Absolute Auto 0.4 K/mm3 (0.1-0.6); Monocytes Percent Auto 9.3 % (2.6-8.5); Neutrophils Percent Auto 48.9 % (45.5-73.1); Platelet Count Result 141 k/mm3 (150-375); Red Blood Count 4.26 M/mm3 (4.2-5.4); Red Cell Distribution Width 12.8 % (11.5-14.5); White Blood Count 4.1 K/mm3 (4.5-10.0)
[2022-09-06 06:05] LABS: Alanine Aminotransferase 76 U/L (6-35); Albumin Level 3.4 g/dL (3.5-5.1); Alkaline Phosphatase 67 U/L (38-126); Anion Gap 4 mmol/L (8-16); Aspartate Amino Transferase 109 U/L (14-36); Bilirubin,Total 0.4 mg/dL (0.2-1.3); Blood Urea Nitrogen 18 mg/dL (7-17); Calcium 7.4 mg/dL (8.4-10.2); Carbon Dioxide 31 mmol/L (22-30); Chloride 103 mmol/L (98-107); Creatine Kinase 580 U/L (30-135); Estimated Glomerular Filt Rate > 60; Glucose 84 mg/dL (65-110); Potassium 3.4 mmol/L (3.4-5.0); Sodium 138 mmol/L (137-145)
--- NOTE | 2022-09-06 06:39 | PCRCNOTE ---
Apnea link monitor done for 09/06/2022 on room air.
[2022-09-06 08:22] LABS: Glucose Point of Care 87 mg/dl (65-105)
[2022-09-06] MEDS: POTASSIUM CHLORIDE 20 MEQ TABLET PO (09:51)
[2022-09-06] MEDS: DOCUSATE SODIUM 100 MG CAPSULE PO (09:51)
[2022-09-06] MEDS: ASPIRIN 81 MG CHEWABLE TABLET PO (09:51)
[2022-09-06] MEDS: carvediloL 12.5 MG TABLET PO ×2 (09:51→18:03)
[2022-09-06] MEDS: TOLNAFTATE 1% POWDER 45 GM BTL 1 APPLIC TOPICAL ×2 (09:52→20:07)
[2022-09-06] MEDS: polyethylene glycoL 3350 17 GM POWD.PACK PO (09:52)
[2022-09-06] MEDS: REMDESIVIR 100 MG/NS 250 ML 100 MG/250 ML BAG 250 MG IVPB (09:52)
[2022-09-06] MEDS: ENOXAPARIN 40 MG/0.4 ML SYRINGE SUB-Q (09:52)
[2022-09-06 12:46] LABS: Glucose Point of Care 198 mg/dl (65-105)
--- NOTE | 2022-09-06 12:54 | PM.IMPN ---
Progress Note: A&P Assessment and Plan (1) COVID-19: Code(s): U07.1 - COVID-19 Status: Acute Assessment and Plan: Patient diagnosed with COVID on admission. Chest x-ray was clear on admission. She was on room air on admission. She was started on baricitinib only. Increase O2 requirement that night. Inflammatory markers showed LDH of 250 and CRP of 3.7. Ferritin normal. Given the only mildly elevated CRP, baricitinib stopped and dexamethasone and remdesivir started. Overall it is unclear if her hypoxia is related to COVID and/or if she has undiagnosed sleep apnea. ApneaLink on 1L showing RI 7.7 and AHI 9.1. Repeat ApneaLik on RA showing AHI 50 and RI 51 with 41 minutes with SpO2<88%. Continue contact and droplet isolation. Wean O2 as tolerated. She will need a formal sleep study as outpatient. (2) Urine retention: Code(s): R33.9 - Retention of urine, unspecified Status: Acute Assessment and Plan: Patient with urine retention so Camacho placed. Not on anti cholinergic medications. Probably related to bed rest. Voiding trial once she is more up and around. (3) Elevated troponin: Code(s): R77.8 - Other specified abnormalities of plasma proteins Status: Acute Assessment and Plan: Troponin 0.118 -> 0.17. The patient has no complaints of chest pain. Just some generalized weakness. EKG shows nml sinus rhythm with a left bundle branch block. Left BBB is chronic. Echo showing EF 50-55% with Grade I diastolic dysfunction and moderate aortic stenosis. Continue ASA and Coreg. Lipitor on hold due to climbing TCK and elevated LFTs. Follow. (4) Weakness: Code(s): R53.1 - Weakness Status: Acute Assessment and Plan: The patient is flaccid on the left side from hx of CVA. Now she is weak and having difficulty walking. TCK levels peaked and now coming down. Statin therapy was held. LFTs higher and felt these findings related to COVID. Continue PT/OT. technical coordinator for possibility of short-term rehab facility. (5) HTN (hypertension): Code(s): I10 - Essential (primary) hypertension Status: Acute Assessment and Plan: Patient's blood pressure was reviewed on 09/06 Blood pressure remains reasonably well controlled. Continue current medications. (6) CVA (cerebral vascular accident): Code(s): I63.9 - Cerebral infarction, unspecified Status: Acute Assessment and Plan: CVA with left sided residual weakness. PT/OT. Short term rehab being arranged. Continue ASA. (7) HLD (hyperlipidemia): Code(s): E78.5 - Hyperlipidemia, unspecified Status: Acute Assessment and Plan: LFTs mildly elevated felt related to the viral illness and rhabdomyolysis. AST trending down. Plan DVT proph - Lovenox Rhabdomyolysis - related to COVID and/or statin therapy. TCK trending down now. Continue to hold atorvastatin. Continue to follow TCK. Hold on IV fluids. Subjective Date/time seen: 09/06/22 12:54 Interval history: 67yo female with hx of CVA, HTN and HLD here for altered mental status. Patient complains of left sided abdominal pain. She feels constipated. No CP. No n/v. Feels SOB but no cough. She had urine retention with in/out cath showing 750mL. Bladder scan a few hours later showing 500+mL so Camacho placed. Exam Narrative: AF 97.9 151/66 76 18 96% RA Gen - NARD lying semi-recumbent in bed Chest - clear anteriorly and in the flanks. CV - RRR S1/S2 Abd - Soft, NT/ND, Positive BS. large ecchymosis to the the left flank - she has large amount of liquid brown stool noted. Camacho secured draining clear yellow uine Ext - No pedal edema Neuro - left hemiplegia Psych - Nml mood but odd affect Skin - Warm and dry Objective Data Vital Signs Vital Signs: Vital Signs - 24 hr 09/05/22 14:20 09/05/22 17:39 09/05/22 20:06 Temperature 98.1 F 97.7 F Pulse Rate 67 61 67 Respiratory Rate 16 22
[2022-09-06 16:34] LABS: Glucose Point of Care 263 mg/dl (65-105)
[2022-09-06] MEDS: INSULIN ASPART (*BKC) 100 UNITS/ML SUB-Q (18:03)
[2022-09-06 20:14] LABS: Glucose Point of Care 246 mg/dl (65-105)
[2022-09-07] VITALS (9 sets, daily range): BP systolic 130–140; BP diastolic 70–84; PULSE 75–87; RESP 18–20; TEMP 36.4–37; O2SAT 93–97
[2022-09-07] MEDS: ALBUTEROL SULFATE (*SP) INHALER 2 PUFF INHALATION ×4 (02:09→20:36)
[2022-09-07 06:03] LABS: INR 1.1; Prothrombin Time 13.6 Seconds (11.1-14.7)
[2022-09-07 06:12] LABS: Alanine Aminotransferase 62 U/L (6-35); Albumin Level 3.6 g/dL (3.5-5.1); Alkaline Phosphatase 80 U/L (38-126); Anion Gap 4 mmol/L (8-16); Aspartate Amino Transferase 77 U/L (14-36); Bilirubin,Total 0.4 mg/dL (0.2-1.3); Blood Urea Nitrogen 15 mg/dL (7-17); Calcium 8.3 mg/dL (8.4-10.2); Carbon Dioxide 31 mmol/L (22-30); Chloride 100 mmol/L (98-107); Creatine Kinase 306 U/L (30-135); Estimated Glomerular Filt Rate > 60; Glucose 134 mg/dL (65-110); Potassium 3.8 mmol/L (3.4-5.0); Sodium 135 mmol/L (137-145)
[2022-09-07 08:39] LABS: Glucose Point of Care 130 mg/dl (65-105)
[2022-09-07] MEDS: ENOXAPARIN 40 MG/0.4 ML SYRINGE SUB-Q (09:30)
[2022-09-07] MEDS: carvediloL 12.5 MG TABLET PO ×2 (09:30→17:29)
[2022-09-07] MEDS: ASPIRIN 81 MG CHEWABLE TABLET PO (09:30)
[2022-09-07] MEDS: TOLNAFTATE 1% POWDER 45 GM BTL 1 APPLIC TOPICAL ×2 (09:31→20:23)
[2022-09-07] MEDS: REMDESIVIR 100 MG/NS 250 ML 100 MG/250 ML BAG 250 MG IVPB (09:31)
[2022-09-07 12:29] LABS: Glucose Point of Care 208 mg/dl (65-105)
[2022-09-07] MEDS: INSULIN ASPART (*BKC) 100 UNITS/ML SUB-Q (12:46)
[2022-09-07 17:22] LABS: Glucose Point of Care 177 mg/dl (65-105)
--- NOTE | 2022-09-07 18:02 | PM.IMPN ---
Progress Note: A&P Assessment and Plan (1) COVID-19: Code(s): U07.1 - COVID-19 Status: Acute Assessment and Plan: Patient diagnosed with COVID on admission. Chest x-ray was clear on admission. She was on room air on admission. She was started on baricitinib only. Increase O2 requirement that night. Inflammatory markers showed LDH of 250 and CRP of 3.7. Ferritin normal. Given the only mildly elevated CRP, baricitinib stopped and dexamethasone and remdesivir started. Overall it is unclear if her hypoxia is related to COVID and/or if she has undiagnosed sleep apnea. ApneaLink on 1L showing RI 7.7 and AHI 9.1. Repeat ApneaLik on RA showing AHI 50 and RI 51 with 41 minutes with SpO2<88%. Continue contact and droplet isolation. Weaned off O2 now. She completed Remdeivir. She will need a formal sleep study as outpatient. Waiting for placement (2) Urine retention: Code(s): R33.9 - Retention of urine, unspecified Status: Acute Assessment and Plan: Patient with urine retention so Camacho placed. Not on anti cholinergic medications. Probably related to bed rest. Voiding trial once she is more up and around. (3) Elevated troponin: Code(s): R77.8 - Other specified abnormalities of plasma proteins Status: Acute Assessment and Plan: Troponin 0.118 -> 0.17. The patient has no complaints of chest pain. Just some generalized weakness. EKG shows nml sinus rhythm with a left bundle branch block. Left BBB is chronic. Echo showing EF 50-55% with Grade I diastolic dysfunction and moderate aortic stenosis. Continue ASA and Coreg. Lipitor on hold due to climbing TCK and elevated LFTs. Follow. (4) Weakness: Code(s): R53.1 - Weakness Status: Acute Assessment and Plan: The patient is flaccid on the left side from hx of CVA. Now she is weak and having difficulty walking. TCK levels peaked and now coming down. Statin therapy was held. LFTs higher and felt these findings related to COVID. Continue PT/OT. staff development coordinator rn for possibility of short-term rehab facility. (5) HTN (hypertension): Code(s): I10 - Essential (primary) hypertension Status: Acute Assessment and Plan: Patient's blood pressure was reviewed on 2/7 Blood pressure remains reasonably well controlled. Continue current medications. (6) CVA (cerebral vascular accident): Code(s): I63.9 - Cerebral infarction, unspecified Status: Acute Assessment and Plan: CVA with left sided residual weakness. PT/OT. Short term rehab being arranged. Continue ASA. (7) HLD (hyperlipidemia): Code(s): E78.5 - Hyperlipidemia, unspecified Status: Acute Assessment and Plan: LFTs mildly elevated felt related to the viral illness and rhabdomyolysis. AST trending down. Plan DVT proph - Lovenox Rhabdomyolysis - related to COVID and/or statin therapy. TCK trending down now. Continue to hold atorvastatin. Continue to follow TCK. Hold on IV fluids. Subjective Date/time seen: 09/07/22 18:02 Interval history: 67yo female with hx of CVA, HTN and HLD here for altered mental status. Still feels SOB but no CP. Mild nonproductive cough. Sense of taste intact. Exam Narrative: AF 98.6 130/84 75 18 93% ra Gen - NARD Chest - clear anteriorly and in the flanks. CV - RRR S1/S2 Abd - Soft, NT/ND, Positive BS. - Camacho secured draining clear yellow urine Ext - No pedal edema Neuro - left hemiplegia Psych - Nml mood but odd affect Skin - Warm and dry Objective Data Vital Signs Vital Signs: Vital Signs - 24 hr 09/06/22 18:03 09/06/22 20:11 09/06/22 20:11 Temperature Pulse Rate 77 80 80 Respiratory Rate 18 18 Blood Pressure Pulse Oximetry 96 Oxygen Delivery Room Air 09/06/22 21:42 09/06/22 20:00 09/07/22 02:09 Temperature 97.6 F Pulse Rate 80 80 Respiratory Rate 20 18 Blood Pressure 151/60 H Pulse Oximetry 9
[2022-09-07] MEDS: DOCUSATE SODIUM 100 MG CAPSULE PO (20:23)
[2022-09-08 02:51] VITALS: PULSE 73; RESP 16; O2SAT 98
[2022-09-08] MEDS: ALBUTEROL SULFATE (*SP) INHALER 2 PUFF INHALATION ×2 (02:51→09:33)
[2022-09-08 06:00] VITALS: BP 138/71; PULSE 80; RESP 20; TEMP 36.6; O2SAT 97
[2022-09-08 08:28] LABS: Glucose Point of Care 129 mg/dl (65-105)
[2022-09-08 10:07] VITALS: PULSE 80
[2022-09-08] MEDS: ASPIRIN 81 MG CHEWABLE TABLET PO (10:07)
[2022-09-08] MEDS: carvediloL 12.5 MG TABLET PO ×2 (10:07→18:13)
[2022-09-08] MEDS: ENOXAPARIN 40 MG/0.4 ML SYRINGE SUB-Q (10:07)
[2022-09-08] MEDS: TOLNAFTATE 1% POWDER 45 GM BTL 1 APPLIC TOPICAL (10:08)
[2022-09-08 12:43] LABS: Glucose Point of Care 163 mg/dl (65-105)
--- NOTE | 2022-09-08 12:57 | PM.DS ---
DS: Admitting Diagnosis Discharge Date 09/08/2022 Admitting Diagnosis Weakness DS: Discharge Diagnosis Discharge Diagnosis (1) COVID-19: Code(s): U07.1 - COVID-19 Status: Acute Assessment and Plan: Patient diagnosed with COVID on admission. Chest x-ray was clear on admission. She was on room air on admission. She was started on baricitinib only. Increase O2 requirement that night. Inflammatory markers showed LDH of 250 and CRP of 3.7. Ferritin normal. Given the only mildly elevated CRP, baricitinib stopped and dexamethasone and remdesivir started. Overall it is unclear if her hypoxia is related to COVID and/or if she has undiagnosed sleep apnea. ApneaLink on 1L showing RI 7.7 and AHI 9.1. Repeat ApneaLik on RA showing AHI 50 and RI 51 with 41 minutes with SpO2<88%. Continue contact and droplet isolation. Weaned off O2 now. She completed Remdeivir. She will need a formal sleep study as outpatient. Waiting for placement (2) Urine retention: Code(s): R33.9 - Retention of urine, unspecified Status: Acute Assessment and Plan: Patient with urine retention so Camacho placed. Not on anti cholinergic medications. Probably related to bed rest. Voiding trial once she is more up and around. (3) Elevated troponin: Code(s): R77.8 - Other specified abnormalities of plasma proteins Status: Acute Assessment and Plan: Troponin 0.118 -> 0.17. The patient has no complaints of chest pain. Just some generalized weakness. EKG shows nml sinus rhythm with a left bundle branch block. Left BBB is chronic. Echo showing EF 50-55% with Grade I diastolic dysfunction and moderate aortic stenosis. Continue ASA and Coreg. Lipitor on hold due to climbing TCK and elevated LFTs. Follow. (4) Weakness: Code(s): R53.1 - Weakness Status: Acute Assessment and Plan: The patient is flaccid on the left side from hx of CVA. Now she is weak and having difficulty walking. TCK levels peaked and now coming down. Statin therapy was held. LFTs higher and felt these findings related to COVID. Continue PT/OT. department coordinator for possibility of short-term rehab facility. (5) HTN (hypertension): Code(s): I10 - Essential (primary) hypertension Status: Acute Assessment and Plan: Patient's blood pressure was reviewed on 09/07 Blood pressure remains reasonably well controlled. Continue current medications. (6) CVA (cerebral vascular accident): Code(s): I63.9 - Cerebral infarction, unspecified Status: Acute Assessment and Plan: CVA with left sided residual weakness. PT/OT. Short term rehab being arranged. Continue ASA. (7) HLD (hyperlipidemia): Code(s): E78.5 - Hyperlipidemia, unspecified Status: Acute Assessment and Plan: LFTs mildly elevated felt related to the viral illness and rhabdomyolysis. AST trending down. Plan DVT proph - Lovenox Rhabdomyolysis - related to COVID and/or statin therapy. TCK trending down now. Continue to hold atorvastatin. Continue to follow TCK. Hold on IV fluids. DS: Summary Hospital Course Hospital Course: 67-year-old female presenting with weakness. She was found to be COVID positive and did require some oxygen. Therefore she was started on dexamethasone. She is able to be weaned off the oxygen and completed a course of remdesivir. She did develop some urine retention so Camacho was placed. She did pass a voiding trial prior to discharge. Troponin was elevated but did not look like CA. all symptoms resolved and she was discharged in stable condition. Time Spent with Patient Time attestation: Total time spent providing and/or coordinating discharge services: Exam Narrative: AF 98.6 130/84 75 18 93% ra Gen - NARD Chest - clear anteriorly and in the flanks. CV - RRR S1/S2 Abd - Soft, NT/ND, Positive BS. - Camacho secured draining clear yellow urine Ext - No pedal edema Ne
[2022-09-08 14:00] VITALS: BP 152/71; PULSE 71; RESP 20; TEMP 36.6; O2SAT 96
[2022-09-08 17:19] LABS: Glucose Point of Care 321 mg/dl (65-105)
[2022-09-08 18:13] VITALS: PULSE 71
[2022-09-08] MEDS: INSULIN ASPART (*BKC) 100 UNITS/ML SUB-Q (18:13)
[2022-09-08 20:51] LABS: Glucose Point of Care 181 mg/dl (65-105)
[2022-09-08 21:41] VITALS: BP 139/72; PULSE 81; RESP 20; TEMP 36.6; O2SAT 97
== END 2022-09-08 22:29 | DRG 178 ==
LOC: ANHED 18:15 → ANHIMU 20:52 → ANH3MED 09-04 11:21
PROVIDERS: Internal Medicine; Nurse Practitioner; Admitting Provider Internal Medicine; Emergency Provider Emergency Medicine; PCP Internal Medicine; Visit Provider Student in an Organized Health Care Education/Training Program
DX: U07.1 COVID-19 (principal); I69.354 Hemiplegia and hemiparesis following cerebral infarction affecting left non-dominant side; M62.82 Rhabdomyolysis; Z68.41 Body mass index [BMI] 40.0-44.9, adult; R09.02 Hypoxemia; R33.9 Retention of urine, unspecified; I44.7 Left bundle-branch block, unspecified; I10 Essential (primary) hypertension; I35.0 Nonrheumatic aortic (valve) stenosis; E78.5 Hyperlipidemia, unspecified; E66.01 Morbid (severe) obesity due to excess calories; J45.909 Unspecified asthma, uncomplicated; Z87.891 Personal history of nicotine dependence
CPT/HCPCS: 36415; 70450; 71045; 80053; 81001; 82550; 82565; 82728; 82948; 83605; 83615; 83735; 84100; 84443; 84450; 84460; 84484; 85025; 85055; 85610; 86140; 87637; 93005; 93306; 94640; 94762; 96360; 96361; 96365; 96366; 96372; 96375; 96376; 97161; 97165; 97530; 97535; 99285; A9270; G0378; J0248; J1100; J1650; J1815; J7040